=== PATIENT | male | born 2000 | race Caucasian/White ===

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

== ENCOUNTER 2018-01-19 13:07 | Emergency (ER) | payer BC, OTHER ==
[~2018-01-19] VITALS: Ht 157.5 cm; Wt 110.9 kg
[2018-01-19 13:18] VITALS: Ht 157.5 cm; Wt 110.9 kg
[2018-01-19 13:45] LABS: microscopic required? NO
[2018-01-19 13:50] LABS: UA SPECIFIC GRAVITY 1.025 (1.005-1.035); urine erythrocyte NEGATIVE (NEGATIVE)
[2018-01-19 13:59] LABS: AMPHETAMINE QUAL UR NONE DETECTED (NEG <=1000)
[2018-01-19 14:11] VITALS: BP 137/89
== END 2018-01-19 14:11 | disposition home or self-care (01) ==
LOC: ED 13:07
PROVIDERS: Emergency Medicine
DX: M54.5 Low back pain (principal)

== ENCOUNTER 2018-01-27 08:23 | Emergency (ER) | payer BC, OTHER ==
[~2018-01-27] VITALS: Ht 157.5 cm; Wt 109.8 kg
[2018-01-27 08:27] VITALS: Ht 157.5 cm; Wt 109.8 kg
[2018-01-27 09:58] VITALS: BP 140/85
== END 2018-01-27 09:58 | disposition home or self-care (01) ==
LOC: ED 08:23
DX: M79.601 Pain in right arm (principal); R20.2 Paresthesia of skin